=== PATIENT | female | born 1985 | race Caucasian/White ===

== ENCOUNTER 2017-02-03 23:40 | Emergency (ER) | payer MEDICAID, OTHER ==
[~2017-02-03] VITALS: Ht 162.6 cm; Wt 52.2 kg
--- NOTE | 2017-02-03 23:48 | NUR ---
PT CAME IN WITH C/O CHEST PAIN WHICH SHE HAS HAD FOR ABOUT AN HOUR.PT STATES PAIN COMES AND GOES.PT STATES NON PROVOKED,NON RADIATING.PT STATES NO PAIN AT PRESENT TIME.PT STATES LAST TIME USED HEROIN WAS ABOUT 4 HRS AGO.PT STATES TOOK 3 BABY ASPIRINS EARLIER TODAY. PT IS ALERT, ORIENTED X 4, NO RESP DISTRESS NOTED OR REPORTED UPON ASSESSMENT. MD AT BEDSIDE...
[2017-02-04] MEDS ORDERED: FURO-152 PO (00:02)
[2017-02-04] MEDS ORDERED: SILD100T PO (00:06)
[2017-02-04 00:45] LABS: HEMATOCRIT 42.5 % (37.0-47.0); HEMOGLOBIN 13.5 g/dL (12.0-16.0); MEAN CORPUSCULAR HEMOGLOBIN 27.8 uug (27.0-31.0); MEAN CORPUSCULAR HGB CONC 32 g/dL (32.0-37.0); MEAN CORPUSCULAR VOLUME 87.3 fL (81.0-99.0); PLATELET COUNT (AUTO) 248 K/uL (150-450); RED BLOOD CELL COUNT(AUTO) 4.87 MIL/uL (4.20-5.40); RED CELL DISTRIBUTION WIDTH 14.6 % (11.5-14.5); WHITE BLOOD COUNT (AUTO) 9.5 K/uL (4.0-11.2)
--- NOTE | 2017-02-04 00:45 | NUR ---
Patient does not wish to proceed with medical care recommended by Dr. BENDER ). Patient given information related to possible complications, up to and including , which could occur as a result of leaving the hospital at this time. Patient verbalizes understanding of risks involved due to leaving against medical advice. Patient has signed AMA form. Pt did not give a reason to wanting to leave. ERMD explained severity of condition but pt still insisted upon leaving, pulled out IV,pt walked out of ER unassisted with belongings at side...
[2017-02-04 00:50] LABS: CALCIUM 8.7 mg/dL (8.5-10.1); CREATININE 0.8 mg/dL (0.6-1.3); POTASSIUM 4.8 mmol/L (3.5-5.1)
[2017-02-04 00:56] VITALS: BP 123/68
[2017-02-04 00:58] LABS: TROPONIN I < 0.017 ng/mL (0.00-0.056)
[2017-02-04 00:59] LABS: LACTIC ACID 0.9 mmol/L (0.4-2.0)
[2017-02-04 01:03] LABS: ALBUMIN 3.2 g/dL (3.4-5.0); BILIRUBIN,DIRECT 0.1 mg/dL (0.0-0.2); BILIRUBIN,TOTAL 0.4 mg/dL (0.2-1.0); TOTAL PROTEIN, SERUM 6.9 g/dL (6.4-8.2)
[2017-02-04 02:58] LABS: BAND % (MANUAL) 1 % (0-10); EOSINOPHILS % (MANUAL) 4 % (0-8); LYMPHOCYTES % (MANUAL) 37 % (20-40); MONOCYTES % (MANUAL) 2 % (2-10); NEUTROPHILS % (MANUAL) 56 % (42-75)
[2017-02-04 02:59] LABS: PLATELET ESTIMATE ADEQUATE
== END 2017-02-04 00:58 | disposition left against medical advice (07) ==
LOC: ER 23:41
DX: R07.9 Chest pain, unspecified (principal); J44.9 Chronic obstructive pulmonary disease, unspecified; F11.20 Opioid dependence, uncomplicated; F19.10 Other psychoactive substance abuse, uncomplicated; F17.200 Nicotine dependence, unspecified, uncomplicated; Z88.2 Allergy status to sulfonamides
CPT/HCPCS: 36415; 80048; 80076; 83605; 83880; 84484; 84703; 85025; 85379; 85730; 87040 ×2; 93005; 99285; A4663; 70030-TC

== ENCOUNTER 2017-06-21 03:35 | Emergency (ER) | payer MEDICAID, OTHER ==
[~2017-06-21] VITALS: Ht 162.6 cm; Wt 52.2 kg
[~2017-06-21 03:35] MED LIST: FURO-152 PO; SILD100T PO
--- NOTE | 2017-06-21 04:10 | NUR ---
Pt was in [facility] for 3 weeks for presumtive endocarditis, staph infection, left AMA. Pt c/o sore throat, 7/10, sharp mid CP, SAN & dizziness, and nausea. Pt denies SOB, no other complaints, no distress noted.
--- NOTE | 2017-06-21 05:00 | NUR ---
Gave pt d/c instructions, verbalized understanding.
== END 2017-06-21 05:01 | disposition home or self-care (01) ==
LOC: ER 03:41
DX: J02.8 Acute pharyngitis due to other specified organisms (principal); R11.0 Nausea; F17.200 Nicotine dependence, unspecified, uncomplicated; Z88.2 Allergy status to sulfonamides
CPT/HCPCS: 36415; 86403; 87070; 99284; A4663